=== PATIENT | female | born 1980 | race Caucasian/White ===

== ENCOUNTER 2023-10-17 07:50 | Observation (INO) | payer OTHER ==
[~2023-10-17 07:50] MED LIST: Sodium Chloride 0.9% 10 ML Syringe FLUSH PRN
[2023-10-17] MEDS: Lactated Ringers 1,000 ML IV SCH (07:50)
[2023-10-17] MEDS ORDERED: Phenazopyridine 95 MG Tab PO SCH (08:00)
[2023-10-17 08:30] LABS: BASOPHILS PERCENT AUTO 0.4 % (0.0-1.0); EOSINOPHILS ABSOLUTE AUTO 0.1 K/mm3 (0.0-0.4); EOSINOPHILS PERCENT AUTO 0.9 % (0.0-6.0); HEMATOCRIT 38.2 % (37.0-47.0); HEMOGLOBIN 12.5 gm/dl (12.0-16.0); IMMATURE GRAN ABSOLUTE AUTO 0.05 K/mm3 (0.00-0.05); IMMATURE GRAN PERCENT AUTO 0.5 % (0.0-0.4); LYMPHOCYTES ABSOLUTE AUTO 3.6 K/mm3 (1.0-4.8); LYMPHOCYTES PERCENT AUTO 33.3 % (24.0-44.0); MEAN CORPUSCULAR HEMOGLOBIN 26.8 pg (28.0-32.0); MEAN CORPUSCULAR HGB CONC 32.7 g/dl (32.0-36.0); MEAN PLATELET VOLUME 9.4 fl (9.4-12.3); MONOCYTES ABSOLUTE AUTO 0.4 K/mm3 (0.0-0.8); MONOCYTES PERCENT AUTO 3.8 % (0.0-8.0); NEUTROPHILS ABSOLUTE AUTO 6.5 K/mm3 (1.8-7.7); NEUTROPHILS PERCENT AUTO 61.1 % (41.0-71.0); PLATELET COUNT,PLT 333 K/mm3 (150-400); RED BLOOD CELL COUNT 4.66 M/mm3 (4.10-5.30); WHITE BLOOD CELL COUNT,WBC 10.65 K/mm3 (3.9-11.3)
[2023-10-17 08:34] LABS: APPEARANCE,URINE CLEAR (Clear); BILIRUBIN,URINE NEGATIVE (Negative); COLOR,URINE YELLOW (Yellow); GLUCOSE,URINE NEGATIVE (Negative); KETONES,URINE NEGATIVE (Negative); LEUKOCYTE ESTERASE,URINE NEGATIVE (Negative); NITRITE,URINE NEGATIVE (Negative); OCCULT BLOOD,URINE NEGATIVE (Negative); PROTEIN,URINE NEGATIVE (Negative); UROBILINOGEN,URINE 0.2 (0.2-1.0)
[2023-10-17] MEDS: Phenazopyridine 95 MG Tab PO ONE (08:36)
[2023-10-17 08:52] LABS: A/G RATIO 0.8 (1-2); ALANINE AMINOTRANSFERASE,ALT 21 U/L (14-59); ALBUMIN 3.6 g/dl (3.4-5.0); ALKALINE PHOSPHATASE 79 U/L (46-116); ANION GAP 14.9 (5-15); ASPARTATE AMNIOTRANSFERASE,AST 12 U/L (15-37); BILIRUBIN TOTAL 0.4 mg/dL (0.2-1.0); BLOOD UREA NITROGEN,BUN 9 mg/dL (7-18); BUN/CREATININE RATIO 12.9 (14-18); CALCIUM 9.3 mg/dL (8.5-10.1); CARBON DIOXIDE,CO2 26 mEq/L (21-32); CHLORIDE,CL 100 mEq/L (98-107); CREATININE 0.7 mg/dL (0.55-1.02); ESTIMATED GFR 109 mL/min (>60); GLUCOSE RANDOM 114 mg/dL (70-99); POTASSIUM,K 3.9 mEq/L (3.5-5.1); SODIUM,NA 137 mEq/L (136-145)
[2023-10-17] MEDS ORDERED: fentaNYL 250 MCG/5 ML SDV ONE ×2 (09:17→10:51)
[2023-10-17] MEDS ORDERED: Propofol 200 MG/20 ML SDV ONE ×8 (09:17→12:05)
[2023-10-17] MEDS ORDERED: Midazolam 1 MG/ML 2 ML SDV ONE (09:17)
[2023-10-17] MEDS ORDERED: dexmedeTOMIDine HCl 200 MCG/2 ML SDV ONE (09:24)
[2023-10-17] MEDS ORDERED: Sodium Chloride 0.9% 100 ML ONE (09:27)
[2023-10-17] MEDS ORDERED: HYDROmorphone 0.5 MG/0.5 ML Syringe ONE ×4 (09:32→11:08)
[2023-10-17] MEDS ORDERED: Scopalamine 1mg/3day Transdermal Patch TOP SCH (09:40)
[2023-10-17] MEDS ORDERED: Lactated Ringers 1,000 ML ONE ×2 (09:52→11:46)
[2023-10-17] MEDS ORDERED: ceFAZolin 2 GM Vial ONE (10:17)
[2023-10-17] MEDS: Lidocaine 1% with EPINEPHrine 1:100,000 20 ML MDV ONE (10:21)
[2023-10-17] MEDS ORDERED: Ondansetron 4 MG/2 ML SDV ONE ×2 (10:21→12:00)
[2023-10-17] MEDS ORDERED: Dexamethasone 4 MG/ML 5 ML MDV ONE (10:27)
[2023-10-17] MEDS ORDERED: diphenhydrAMINE 50 MG/ML SDV ONE (10:45)
[2023-10-17] MEDS ORDERED: Rocuronium 50 MG/5 ML Vial ONE ×2 (11:00→11:10)
[2023-10-17] MEDS ORDERED: Labetalol 100 MG/20 ML MDV ONE (11:11)
[2023-10-17] MEDS ORDERED: Ketorolac 30 MG/ML SDV ONE (12:00)
[2023-10-17] MEDS ORDERED: ePHEDrine 50 MG/ML SDV ONE (12:11)
[2023-10-17] MEDS: Acetaminophen 325 MG Tab PO SCH (14:38)
[2023-10-17] MEDS: oxyCODONE 5 MG Tab PO PRN (14:39)
[2023-10-17] MEDS: Ondansetron 4 MG Tab.DIS PO PRN (17:40)
[2023-10-17] MEDS: Ibuprofen 600 MG Tab PO SCH (18:30)
[2023-10-17] MEDS: Sodium Chloride 0.9% 10 ML Syringe FLUSH SCH (18:40)
[2023-10-17] MEDS: Docusate Sodium 100 MG Cap PO SCH (20:55)
[2023-10-18] MEDS: Dextrose 5%-0.45% NaCl 1,000 ML IV SCH (02:40)
[2023-10-18] MEDS: Promethazine 25 MG/ML SDV IM ONE (02:40)
[2023-10-18 06:26] LABS: BASOPHILS PERCENT AUTO 0.1 % (0.0-1.0); EOSINOPHILS ABSOLUTE AUTO 0.1 K/mm3 (0.0-0.4); EOSINOPHILS PERCENT AUTO 0.2 % (0.0-6.0); HEMATOCRIT 29.5 % (37.0-47.0); HEMOGLOBIN 9.6 gm/dl (12.0-16.0); IMMATURE GRAN ABSOLUTE AUTO 0.16 K/mm3 (0.00-0.05); IMMATURE GRAN PERCENT AUTO 0.6 % (0.0-0.4); LYMPHOCYTES ABSOLUTE AUTO 2.1 K/mm3 (1.0-4.8); LYMPHOCYTES PERCENT AUTO 8.6 % (24.0-44.0); MEAN CORPUSCULAR HEMOGLOBIN 26.9 pg (28.0-32.0); MEAN CORPUSCULAR HGB CONC 32.5 g/dl (32.0-36.0); MEAN CORPUSCULAR VOLUME 82.6 fl (83.0-99.0); MONOCYTES ABSOLUTE AUTO 1.3 K/mm3 (0.0-0.8); MONOCYTES PERCENT AUTO 5.2 % (0.0-8.0); NEUTROPHILS ABSOLUTE AUTO 21.1 K/mm3 (1.8-7.7); NEUTROPHILS PERCENT AUTO 85.3 % (41.0-71.0); PLATELET COUNT,PLT 290 K/mm3 (150-400); RED BLOOD CELL COUNT 3.57 M/mm3 (4.10-5.30)
[2023-10-18 06:36] LABS: ANION GAP 13.8 (5-15); BUN/CREATININE RATIO 11.3 (14-18); CALCIUM 8.8 mg/dL (8.5-10.1); CREATININE 0.8 mg/dL (0.55-1.02); EST CRCL DRUG DOSING (CG) 67.01 mL/min; POTASSIUM,K 3.8 mEq/L (3.5-5.1)
[2023-10-18 07:06] LABS: SLIDE REVIEW ABNORMAL SMEAR
[2023-10-18] MEDS ORDERED: Sodium Chloride 0.9% 10 ML Syringe FLUSH PRN (07:06)
[2023-10-18] MEDS ORDERED: Promethazine 25 MG Tab PO PRN (07:06)
[2023-10-18 12:24] VITALS: BP 121/72; PULSE 81
== END 2023-10-18 13:42 | disposition home or self-care (01) ==
LOC: JD.SDS 07:50 → JD.OB 11:00 → JD.SDS 12:55 → JD.OB 12:56
PROVIDERS: ADMIT Obstetrics & Gynecology; ATTEND Obstetrics & Gynecology
DX: D25.1 Intramural leiomyoma of uterus (principal); D25.0 Submucous leiomyoma of uterus; D25.2 Subserosal leiomyoma of uterus; D17.79 Benign lipomatous neoplasm of other sites; D27.1 Benign neoplasm of left ovary; N80.9 Endometriosis, unspecified; D62 Acute posthemorrhagic anemia; Z79.899 Other long term (current) drug therapy; Z88.0 Allergy status to penicillin; Z88.5 Allergy status to narcotic agent
CPT/HCPCS: 36415; 58571; 80048; 80053; 81003; 81025; 85025; 86850; 86900; 86901; 96372; A9270; G0378; J0690; J1100; J1170; J1200; J1885; J1921; J2250; J2405; J2550; J2704; J3010; J3490; J7030; J7042; J7120; 00840

== ENCOUNTER 2023-10-22 11:19 | Emergency (ER) | payer OTHER ==
[2023-10-22 11:35] VITALS: PULSE 95
[2023-10-22 12:17] LABS: APPEARANCE,URINE CLEAR (Clear); BILIRUBIN,URINE NEGATIVE (Negative); COLOR,URINE YELLOW (Yellow); GLUCOSE,URINE NEGATIVE (Negative); KETONES,URINE NEGATIVE (Negative); LEUKOCYTE ESTERASE,URINE NEGATIVE (Negative); NITRITE,URINE NEGATIVE (Negative); OCCULT BLOOD,URINE NEGATIVE (Negative); PROTEIN,URINE NEGATIVE (Negative); UROBILINOGEN,URINE 0.2 (0.2-1.0)
[2023-10-22] MEDS: Sodium Chloride 0.9% 1,000 ML IV SCH (12:40)
[2023-10-22] MEDS: Ondansetron 4 MG/2 ML SDV IVPUSH ONE (12:40)
[2023-10-22 12:46] LABS: BACTERIA,URINE NOT SEEN /hpf (FEW); MUCUS,URINE NOT SEEN /hpf (FEW); RBC,URINE NOT SEEN /hpf (0-5); SQUAMOUS EPITHELIAL CELLS,UR 0-5 /hpf (0-5); WBC,URINE 0-5 /hpf (0-5)
[2023-10-22 12:50] LABS: BASOPHILS ABSOLUTE AUTO 0.1 K/mm3 (0.0-0.2); BASOPHILS PERCENT AUTO 0.5 % (0.0-1.0); EOSINOPHILS ABSOLUTE AUTO 0.2 K/mm3 (0.0-0.4); EOSINOPHILS PERCENT AUTO 1.8 % (0.0-6.0); HEMATOCRIT 33.4 % (37.0-47.0); HEMOGLOBIN 10.6 gm/dl (12.0-16.0); IMMATURE GRAN ABSOLUTE AUTO 0.19 K/mm3 (0.00-0.05); IMMATURE GRAN PERCENT AUTO 1.4 % (0.0-0.4); LYMPHOCYTES ABSOLUTE AUTO 3.8 K/mm3 (1.0-4.8); LYMPHOCYTES PERCENT AUTO 29.1 % (24.0-44.0); MEAN CORPUSCULAR HEMOGLOBIN 26.6 pg (28.0-32.0); MEAN CORPUSCULAR HGB CONC 31.7 g/dl (32.0-36.0); MEAN CORPUSCULAR VOLUME 83.9 fl (83.0-99.0); MEAN PLATELET VOLUME 9.4 fl (9.4-12.3); MONOCYTES ABSOLUTE AUTO 0.6 K/mm3 (0.0-0.8); MONOCYTES PERCENT AUTO 4.4 % (0.0-8.0); NEUTROPHILS ABSOLUTE AUTO 8.3 K/mm3 (1.8-7.7); NEUTROPHILS PERCENT AUTO 62.8 % (41.0-71.0); PLATELET COUNT,PLT 384 K/mm3 (150-400); RED BLOOD CELL COUNT 3.98 M/mm3 (4.10-5.30); WHITE BLOOD CELL COUNT,WBC 13.14 K/mm3 (3.9-11.3)
[2023-10-22 13:26] LABS: A/G RATIO 0.7 (1-2); ALBUMIN 3.2 g/dl (3.4-5.0); ANION GAP 13.5 (5-15); BILIRUBIN TOTAL 0.6 mg/dL (0.2-1.0); BUN/CREATININE RATIO 11.3 (14-18); CALCIUM 9.1 mg/dL (8.5-10.1); CREATININE 0.8 mg/dL (0.55-1.02); EST CRCL DRUG DOSING (CG) 63.79 mL/min; POTASSIUM,K 3.5 mEq/L (3.5-5.1); PROTEIN TOTAL,TP 7.6 g/dl (6.4-8.2)
[2023-10-22] MEDS: Iopamidol 612 MG/ML 100 ML Bottle IVPUSH ONE (13:56)
[2023-10-22] MEDS: Sodium Chloride 0.9% 10 ML Syringe FLUSH PRN (13:56)
[2023-10-22] MEDS: Sulfamethoxazole/Trimethoprim 800-160 MG Tab PO SCH (14:30)
[2023-10-22 21:38] VITALS: BP 149/82
== END 2023-10-22 14:11 | disposition home or self-care (01) ==
LOC: JD.ED 11:19
DX: N30.00 Acute cystitis without hematuria (principal); J45.909 Unspecified asthma, uncomplicated; Z79.51 Long term (current) use of inhaled steroids; Z88.0 Allergy status to penicillin; Z88.5 Allergy status to narcotic agent; Z79.899 Other long term (current) drug therapy
CPT/HCPCS: 36415; 74177; 80053; 81001; 83690; 85025; 96361; 96374; 99284; A9270; J2405; J3490; J7030; Q9967

== ENCOUNTER 2024-07-30 06:45 | Day surgery (SDC) | payer OTHER ==
[2024-07-30] MEDS ORDERED: Sodium Chloride 0.9% 10 ML Syringe FLUSH PRN (07:00)
[2024-07-30] MEDS ORDERED: Sodium Chloride 0.9% 10 ML Syringe FLUSH SCH (07:00)
[2024-07-30] MEDS: Lactated Ringers 1,000 ML IV SCH (07:15)
[2024-07-30] MEDS ORDERED: Propofol 200 MG/20 ML SDV ONE ×6 (07:26→08:59)
[2024-07-30] MEDS ORDERED: fentaNYL 250 MCG/5 ML SDV ONE (07:28)
[2024-07-30] MEDS ORDERED: Ondansetron 4 MG/2 ML SDV ONE (07:29)
[2024-07-30] MEDS ORDERED: Ketorolac 30 MG/ML SDV ONE (07:29)
[2024-07-30] MEDS ORDERED: dexmedeTOMIDine HCl 200 MCG/2 ML SDV ONE (07:29)
[2024-07-30] MEDS ORDERED: Rocuronium 50 MG/5 ML Vial ONE ×2 (07:29→08:27)
[2024-07-30] MEDS ORDERED: Midazolam 1 MG/ML 2 ML SDV ONE (07:29)
[2024-07-30] MEDS ORDERED: diphenhydrAMINE 50 MG/ML SDV ONE (07:49)
[2024-07-30] MEDS ORDERED: Dexamethasone 4 MG/ML 5 ML MDV ONE (07:49)
[2024-07-30] MEDS ORDERED: HYDROmorphone 0.5 MG/0.5 ML Syringe ONE ×4 (08:22→08:48)
[2024-07-30] MEDS ORDERED: fentaNYL 100 MCG/2 ML SDV ONE (08:31)
[2024-07-30] MEDS ORDERED: Labetalol 100 MG/20 ML MDV ONE (08:33)
[2024-07-30] MEDS: Bupivacaine 0.5% 30 ML SDV ONE (09:10)
[2024-07-30] MEDS ORDERED: Sugammadex Sodium 200 MG/2 ML VIAL IV ONE (09:12)
[2024-07-30] MEDS ORDERED: fentaNYL 100 MCG/2 ML SDV IVPUSH PRN (09:52)
[2024-07-30] MEDS ORDERED: HYDROmorphone 0.5 MG/0.5 ML Syringe IVPUSH PRN (09:52)
[2024-07-30 12:34] VITALS: BP 101/63; PULSE 92
== END 2024-07-30 13:02 | disposition home or self-care (01) ==
LOC: JD.SDS 06:45
PROVIDERS: ATTEND Obstetrics & Gynecology
DX: N80.102 Endometriosis of left ovary, unspecified depth (principal); J45.998 Other asthma; Z79.899 Other long term (current) drug therapy; Z88.0 Allergy status to penicillin
CPT/HCPCS: 36415; 58661; 86850; 86900; 86901; J0665; J1100; J1171; J1200; J1885; J1920; J2250; J2405; J2704; J3010; J3490; J7120; 00840

== ENCOUNTER 2024-10-24 09:25 | Day surgery (SDC) | payer OTHER ==
[~2024-10-24 09:25] MED LIST changes: +Sodium Chloride 0.9% 10 ML Syringe FLUSH SCH
[2024-10-24] MEDS: Lactated Ringers 1,000 ML IV SCH (10:00)
[2024-10-24] MEDS: Clindamycin Phosphate in D5W 900 MG in Premix Bag 1 BAG IV ONE (10:04)
[2024-10-24] MEDS ORDERED: Propofol 200 MG/20 ML SDV ONE ×4 (10:35→11:54)
[2024-10-24] MEDS ORDERED: dexmedeTOMIDine HCl 200 MCG/2 ML SDV ONE (10:36)
[2024-10-24] MEDS ORDERED: Dexamethasone 4 MG/ML 5 ML MDV ONE (10:36)
[2024-10-24] MEDS ORDERED: Ondansetron 4 MG/2 ML SDV ONE (10:36)
[2024-10-24] MEDS ORDERED: diphenhydrAMINE 50 MG/ML SDV ONE (10:36)
[2024-10-24] MEDS ORDERED: fentaNYL 250 MCG/5 ML SDV ONE (10:36)
[2024-10-24] MEDS ORDERED: EPINEPHrine 1 MG/ML SDV ONE (10:41)
[2024-10-24] MEDS ORDERED: HYDROmorphone 0.5 MG/0.5 ML Syringe ONE ×2 (12:00)
[2024-10-24] MEDS ORDERED: Ketorolac 30 MG/ML SDV ONE (12:02)
[2024-10-24] MEDS: Bupivacaine 0.25% 10 ML SDV ONE (12:06)
[2024-10-24] MEDS ORDERED: HYDROmorphone 0.5 MG/0.5 ML Syringe IVPUSH PRN (12:33)
[2024-10-24] MEDS ORDERED: Ondansetron 4 MG/2 ML SDV IVPUSH PRN (12:33)
[2024-10-24] MEDS: fentaNYL 100 MCG/2 ML SDV IVPUSH PRN (12:44)
[2024-10-24] MEDS: Acetaminophen/HYDROcodone 325-5 MG Tab PO PRN (14:10)
[2024-10-24 14:41] VITALS: BP 136/90; PULSE 85
== END 2024-10-24 14:33 | disposition home or self-care (01) ==
LOC: JD.SDS 09:25
PROVIDERS: ATTEND Orthopaedic Surgery
DX: M22.41 Chondromalacia patellae, right knee (principal); M75.41 Impingement syndrome of right shoulder; J45.909 Unspecified asthma, uncomplicated; F41.9 Anxiety disorder, unspecified; Z79.899 Other long term (current) drug therapy; Z88.0 Allergy status to penicillin; Z88.5 Allergy status to narcotic agent
CPT/HCPCS: 29876; A9270; J0171; J0665; J0736; J1100; J1200; J1885; J2405; J2704; J3010; J7120; 01400